=== PATIENT | male | born 1965 | race Caucasian/White ===

== ENCOUNTER 2017-03-24 20:58 | Inpatient (IN) | payer OTHER ==
[~2017-03-24] VITALS: Ht 170.2 cm; Wt 56.8 kg
[~2017-03-24 20:58] MED LIST: ANDROGEL5 GM TOP; ATORVASTATIN CA20 M1 PO; CAMBIA50 M1 PO; CEPHALEXIN500 M3 PO; FISH OIL 1,001000 MG PO; KEFLEX500 M1 PO; KETOROLAC TROME10 M1 PO; METHADONE HCL10 M1 PO; METHADONE HCL5 MG PO; MULTI-DAY VITA1 EACH PO; NAPROSYN500 M1 PO; OXYCODONE HCL15 M1 PO; ROBAXIN500 M1 PO; SUMATRIPTAN SU100 M1 PO
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
--- NOTE | 2017-03-24 21:38 | NUR ---
BLOOD DRAWN AND SENT TO LAB SST LAV BLUE
[2017-03-24 21:43] LABS: ABSOLUTE BASOPHIL COUNT 0.1 /CUMM (0.0-0.2); ABSOLUTE EOSINOPHIL COUNT 0.1 /CUMM (0.0-0.7); ABSOLUTE LYMPH COUNT 1.3 /CUMM (1.2-3.4); BASOPHIL % 0.9 % (0.0-2.0); EOSINOPHIL % 0.8 % (0-5); GRANULOCYTE % 71.4 % (42.2-75.2); HEMATOCRIT 40.7 % (42-52); MEAN CORPUSCULAR HGB 29.5 PG (27.0-31.0); MEAN CORPUSCULAR HGB CONC 33.1 G/DL (33.0-37.0); MEAN CORPUSCULAR VOLUME 89.1 FL (80.0-94.0); MEAN PLATELET VOLUME 9.1 FL (7.4-10.4); PLATELET COUNT 222 /CUMM (130-400); RBC DISTRIBUTION WIDTH 13.9 % (11.5-14.5); RED BLOOD CELL CT 4.57 /CUMM (4.70-6.10); WHITE BLOOD CELL COUNT 8.3 /CUMM (4.8-10.8)
--- NOTE | 2017-03-24 22:34 | NUR ---
PT REEVALUATED BY MD ZULEYKA AND MEDICATED WITH CATAPRES BY DARLING ZAPATA.
--- NOTE | 2017-03-24 23:30 | NUR ---
PT MEDICATED WITH 10MG HALDOL IM AND 2MG ATIVAN IM PER EMAR.
--- NOTE | 2017-03-24 23:46 | NUR ---
PT MEDICATED WITH 60MG TORADOL IM IN THE LEFT ARM. THIS RN STRAIGHT CATHED PT WITH 100ML OUTPUT. URINE TRIO SENT TO LAB
--- NOTE | 2017-03-25 01:28 | NUR ---
PT SLEEPING WITH RR, PT PLACED ON MONITOR IN RM. WILL CONTINUE TO MONITOR
--- NOTE | 2017-03-25 03:01 | NUR ---
PT SLEEPING WITH RR, BILATERAL CHEST RISE AND FALL NOTED. SITTER IN PLACE.
--- NOTE | 2017-03-25 06:06 | NUR ---
PT NOTED TO BE SLEEPING ON LEFT SIDE WITH RR, BILATERAL CHEST RISE AND FALL NOTED. PT ON MONITOR.
--- NOTE | 2017-03-25 06:45 | NUR ---
patient sleeping soundly at this time. even, nonlabored resp rate noted. will continue to monitor. lights remain dimmed to promote rest and comfort.
--- NOTE | 2017-03-25 08:00 | NUR ---
SITTER REMAINS WITH PATIENT AT THIS TIME FOR CONSTANT OBSERVATION AND PATIENT SAFETY.
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
--- NOTE | 2017-03-25 10:08 | NUR ---
MED WITH CATAPRES AT THIS TIME.
--- NOTE | 2017-03-25 11:54 | NUR ---
RESUMED CARE OF PT FROM PREVIOUS RN. PT MOVED TO RM 15. PT IS CALM AND COOPERATIVE WITH STAFF. NAD NOTED. AWAITING DISPO AND WILL CONTIUE TO MONITOR.
--- NOTE | 2017-03-25 13:40 | NUR ---
PT SLEEPING QUIETLY IN ROOM. AWAITING CRISIS EVAL AND DISPO. PT IN NAD. VSS. CONSTANT OBS MAINTAINED.
--- NOTE | 2017-03-25 15:12 | NUR ---
RELOCATED TO [facility] AT THIS TIME.
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
--- NOTE | 2017-03-25 15:53 | NUR ---
PT PROVIDED MEAL TRAY. PT CALM AND COOPERATIVE. DENIED HAVING ANY COMPLAINTS. SITTER PRESENT
--- NOTE | 2017-03-25 16:41 | NUR ---
PT MEDICATED WITH CLONIDINE O.1MG PO
--- NOTE | 2017-03-25 19:01 | NUR ---
Pt unable to be evlauted this shift, pt was medicated, and sound asleep, reviewed with oncall psychiatrist pt to be evaluated in the morning, when alert and oriented.
--- NOTE | 2017-03-25 19:10 | NUR ---
PT REQUESTING SOMETHING BECAUSE "ITS TOO LOUD" GIVEN EARPLUGS FOR COMFORT. PT BACK TO SLEEP AT THIS TIME W.RR NOTED. WILL CTM.
--- NOTE | 2017-03-25 22:42 | NUR ---
PT MEDICATED WITH CLONIDINE 0.1MG PO. PT REMAINED CALM AND COOPERATIVE. SITTER PRESENT
--- NOTE | 2017-03-26 00:04 | NUR ---
PT PROVIDED WITH JAZZMINE CRACKERS AND PEANUT BUTTER. DENIED HAVING ANY COMPLAINTS.
--- NOTE | 2017-03-26 02:29 | NUR ---
PT SLEEPING ON STRETCHER IN HALLWAY. RR WNL. NO APPARENT DISTRESS NOTED
--- NOTE | 2017-03-26 02:57 | NUR ---
PT MEDICATED WITH 2MG ATIVAN PER EMAR
--- NOTE | 2017-03-26 04:18 | NUR ---
PT ASLEEP AT THIS TIME W/RR NOTED, NAD.
--- NOTE | 2017-03-26 06:09 | NUR ---
PT REMAINS ASLEEP AT THIS TIME. PT IS SELF-REPOSITIONING. NAD. EQUAL CHEST RISE AND FALL NOTED. WILL CTM.
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
--- NOTE | 2017-03-26 09:08 | NUR ---
PT UP TO BATHROOM, STEADY BUT SLOW GAIT. PT ATE 100 % OF BREAKFAST
--- NOTE | 2017-03-26 09:19 | NUR ---
PT PROVIDED WITH EYE MASK DUE TO COMPLAINTS THAT HE IS TRYING TO SLEEP AND THE LIGHTS ARE TO BRIGHT
--- NOTE | 2017-03-26 10:43 | NUR ---
PT MEDICATED PER ORDER WITH CLONIDINE. PT REMAINS CALM AND COPERATIVE AT THIS TIME AND ANSWERS ALL QUESTIONS FROM THIS NURSE APPROPRIATLY
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
--- NOTE | 2017-03-26 12:05 | NUR ---
PT NOTED TO BE SLEEPING AT THIS TIME, REGULAR RESP RATE NOTED .
--- NOTE | 2017-03-26 14:07 | NUR ---
PT CONTINUES TO SLEEP ON STRETCHER WITH EYE SHIELD ON , REGULAR RESP RATE NOTED AT THIS TIME.
--- NOTE | 2017-03-26 16:51 | NUR ---
PATIENT HAS BEEN RESTING W/O C/O SINCE THIS NURSE TOO OVER CARE. VSS NAD APPROPRIATE BEHAVIOR AT THIS TIME
--- NOTE | 2017-03-26 17:34 | NUR ---
PATIENT IS REQUESTING PAIN MEDICATION FOR BACK PAIN.
--- NOTE | 2017-03-26 18:00 | NUR ---
PATIENT IS UP IN THE BR AND SHAVING. THIS NURSE IS WATCHING PATIENT VERY CLOSE. PATIENT IS DENYING SI AT THIS TIME.
--- NOTE | 2017-03-26 18:48 | NUR ---
PATIENT IS CURRENTLY IN CONSULTATION ROOM W/ CRISIS [place]ON APPRENTICE
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
[2017-03-26 22:56] VITALS: BP 145/89
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
[2017-03-27 08:52] VITALS: BP 155/94
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
[2017-03-27 12:35] VITALS: BP 125/75
--- NOTE | 2017-03-27 14:19 | NUR ---
PT IS CONSTANTLY APPROACHING NURSES STATION REQUESTING ITEMS SUCH SOCKS, EXTRA COFFEE, EXTRA BLANKETS, ETC. PT IS POLITE AND REDIRECTABLE BUT DEMANDS A LOT OF ATTENTION FROM STAFF. PT HAS BEEN OUT IN THE COMMUNITY INTERACTING WITH PEERS/STAFF ALL DAY SHIFT. PT HAS BEEN ATTENDING GROUPS AND PARTICIPATING. VS ARE STABLE AND DENIES ANY SI/HI TO THIS MHW. STATES THAT HE WANTS TO CLARIFY HIS MEDICATIONS.
[2017-03-27 16:09] VITALS: BP 144/82
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
[2017-03-27 20:19] VITALS: BP 126/75
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
--- NOTE | 2017-03-27 22:36 | NUR ---
PT VISIBLE MOST OF THE EVENING IN THE [place]. HE HAD A VISIT FROM TWO OF HIS FRIENDS THIS EVENING, THEY STAYED FOR A SHORT WHILE DROPPING OFF ITEMS TO PT. PT HAS SOME INTERACTIONS WITH PEERS, AND IS COMPLIANT WITH THE RULES OF THE UNIT. HE DENIES THOUGHTS TO HURT HIMSELF WHEN ASKED.
--- NOTE | 2017-03-28 05:31 | NUR ---
PT AWAKE AT 0500 C/O OF DISCOMFORT NEUROTIN GIVEN.
[2017-03-28 07:40] VITALS: BP 117/86
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
[2017-03-28 12:28] VITALS: BP 136/76
[2017-03-28 16:06] VITALS: BP 137/92
--- NOTE | 2017-03-28 17:08 | SOCIAL WORKER PROG NOTE PSYCH ---
Social Work Progress Note Progress Note 03/28/2017 5:00 pm Met with patient briefly to discuss referrals to multiple rehab centers as it is often difficult to obtain a rehab bed. patient agreed signed multiple releases of information. Referrals made to [facility], [facility], [facility]. Wojciech Petersn contacted to obtain fax number no fax number obtained. Social work to continue to follow.
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
[2017-03-28 20:01] VITALS: BP 135/87
--- NOTE | 2017-03-28 21:44 | NUR ---
PT IS VISIBLE ON UNIT, VISITING WITH SISTER IN KITCHEN. VERY SOCIAL WITH PEERS. COOPERATIVE AND COMPLIANT WITH STAFF. ATTENDED WRAP UP MEETING. NO COMPLAINTS OR SI REPORTED. PT HAS A STABLE MOOD AND FULL RANGE AFFECT.
[2017-03-29 07:48] VITALS: BP 136/65
--- NOTE | 2017-03-29 11:02 | NUR ---
PPT IS STABLE WITH BRIGHT, FULL RANGE OF AFFECT. PT HAS BEEN ATTENDING GROUPS THIS AM AND IS VISIBLE WITHIN THE [place] INTERACTING APPROPRIATELY WITH PEERS/STAFF. PT STATED HIS GOAL TODAY WAS TO "WORK ON GETTING INTO REHAB IN [place] AND MAKE IT A PERMANENT MOVE". PT IS PLEASANT, POLITE, COOPERATIVE AND COMPLIANT. VS ARE STABLE AND DENIES ANY SI/HI TO THIS MHW.
[2017-03-29 12:14] VITALS: BP 141/93
[2017-03-29 16:33] VITALS: BP 139/73
--- NOTE | 2017-03-29 16:35 | SOCIAL WORKER PROG NOTE PSYCH ---
Social Work Progress Note Progress Note Patient intially approached me today stating that he was interested in speaking with the psychiatrist about discharge due to being in physical pain and wanting to see his pain management doctor. Raj Iniguez (PA student) and this science writer met with patient at 3:40pm at which time the patient stated that he was feeling "great" and no longer in pain as he was utilizing a newly learned tapping technique from a group this afternoon and his pain has since diminished. He stated that he is therefore not interested in discharging at this time. Patient reported that he had slept well the night before and was engaged in the [facility]. He discussed medication questions and concerns with Dr. Smith. Discharge plans were explored to include a rehab in [place] and several in [place] as well as housing options and IOP until he enters a rehab. Patient appeared motivated to following through with a discharge plan to include an appointment with pain management on 04/03/17.
--- NOTE | 2017-03-29 16:50 | SOCIAL WORKER PROG NOTE PSYCH ---
Social Work Progress Note Progress Note This writer editor received vm from Nasima at [facility] in response the the referral. This writer editor returned the call and was informed that she is not in the office and will try to reach her tomorrow.
[2017-03-29 20:08] VITALS: BP 116/86
--- NOTE | 2017-03-29 22:17 | NUR ---
PT IS VISIBLE ON UNIT, SOCIALIZING WITH PEERS AND WATCHING TV. PT ATTENDED WRAP UP MEETING AND AA THIS EVENING. COOPERATIVE AND COMPLIANT WITH STAFF. NO COMPLAINTS OR SI REPORTED. PT HAS A STABLE MOOD AND FULL RANGE AFFECT.
--- NOTE | 2017-03-30 07:29 | NUR ---
PT SLEPT IN LONG INTERVALS. PT HAD NEURONTIN 600 PRN AT 0210. PT WOULD LIKE HYDROCORTISONE CREAM FOR A SKIN PROBLEM.
[2017-03-30 07:50] VITALS: BP 131/93
--- NOTE | 2017-03-30 10:37 | SOCIAL WORKER PROG NOTE PSYCH ---
Social Work Progress Note Progress Note Phoned [facility]#[phone], spoke with [place] - she stated they do not accept Adam's insurance Sean [employer] (actually it is not active - his insurance - will have Adam call Sean to apply [phone]). They will only accept commercial private insurance. It is $28,000 for the first month and the second month is "free." I infomed Karis Landry LCSW.
--- NOTE | 2017-03-30 11:52 | NUR ---
PT HAD SOME VISIBILITY IN THE [place] TODAY. HIS GOAL WAS TO KEEP WORKING ON DISCHARGE PLANS. PT DID NOT ATTEND FOCUS GROUP, OR THE 11:30 A GROUP. PT INSTEAD STAYED IN HIS ROOM AND RESTED. PT HAS BEEN INTERACTING WITH PEERS WHEN HE IS AWAKE, AND COMPLIANT WITH THE RULES OF THE UNIT. HE DENIES THOUGHTS TO HURT HIMSELF WHEN ASKED.
[2017-03-30 12:12] VITALS: BP 147/80
[2017-03-30 16:20] VITALS: BP 144/86
--- NOTE | 2017-03-30 17:34 | CP SOUTH PROGRESS NOTE PSYCH ---
Psych (Inpt) Progress Note Progress Note Include the following elements, when applicable: Involvement in the active treatment of the patient with behavioral observations of the patient and the patient's response to the treatment. Review of the ongoing treatment process in the context of the treatment plan. Indication of how multi-disciplinary staff members are carrying out the treatment plan. Plans for future interventions and recommendations for revision of the treatment plan. Liaison with other physicians/providers. Progress Note: PSYCHIATRIST NOTE (for 03/29/2017): I discussed this patient's progress to date, current mental status, treatment and discharge planning with staff team on the above date in the daily morning ITTChristiano and Charlotte Landry LCSW, our P.A. student Raj and I met with this patient together once again in individual session. He noted decreased and now manageable pain level after learning a technique called "tapping," and was willing to continue methadone taper in hospital which has begun and will be completed on 04/02/2017 with planned appointment with his pain management physician, Dr. Tata Anne, early next week; the date of that appointment must be clarified and modified if necessary, as it appears to be scheduled in early AM which is Sunday. Though patient's mood has been somewhat volitile/ labile at times there has been no clear impression to date of his being hypomanic or clinically depressed; his anxiety level and pressure have been diminishing, though he is still apt to speak at length about subjects such as ancient translations of biblical texts and their discrepancies, inacturacies and inadequacies, if given the chance.
--- NOTE | 2017-03-30 17:35 | CP SOUTH PROGRESS NOTE PSYCH ---
Psych (Inpt) Progress Note Progress Note Include the following elements, when applicable: Involvement in the active treatment of the patient with behavioral observations of the patient and the patient's response to the treatment. Review of the ongoing treatment process in the context of the treatment plan. Indication of how multi-disciplinary staff members are carrying out the treatment plan. Plans for future interventions and recommendations for revision of the treatment plan. Liaison with other physicians/providers. Progress Note: PSYCHIATRIST NOTE, 03/30/2017: I discussed this patient's progress to date, current mental status, treatment and discharge planning with staff team today in the daily morning ITTM and also met with him again myself in individual session. Patient noted continuing generalized pain not completely covered by the methadone as we taper down dose of the latter (from 40mg daily to 10mg 3x/day today) but is managing; he did accept another increase in regular dose of Neurontin to 900mg 4x/day which gives him the usual daily maximum of that medication, as well as doubling of clonidine dose at HS to 0.2mg to better help with sleep induction/ maintenance. Patient is currently wide awake, clear and quite coherent and goal -directed in expressed thinking, cooperative with unit programming and fitting increasingly well into the milieu. He endorsed the plan for continuing reduction in daily dose of methadone over the coming weekend with last 5mg dose to be given a noontime on 04/02/2017. There is still no clear evidence of endogenous depression or disorder of thought. Patient is more positive, engaging and future-oriented, denies suicidality in hospital, is feeling hopeful. We discovered that patient's currently scheduled appointment with his pain management physician, Dr. Baljeet Anne, is on 04/02/2017, in the earth science professor; he will be calling the doctor's office in order to try to move the visit to Sunday afternoon or as soon thereafter as possible.
--- NOTE | 2017-03-30 17:48 | SOCIAL WORKER PROG NOTE PSYCH ---
See Addendum Social Work Progress Note Progress Note This teletypewriter operator met with patient. He reported "terrible" sleep last night for multiple reasons such as noise and checks. He also reported experiencing pain ( "I'm tolerating it."), however, finding the tapping technique he learned in group yesterday as well as "my spiritual life" as helpful. Discharge plans were discussed. Patient is no longer interested in the [place] rehab due to the cost , however, he stated that he would call this weekend to inquire about possible scholarship options. Patient discussed looking forward to discharge on Sunday and meeting with his acid painter. This teletypewriter operator has also contacted [facility] in [place] and spoke with Karis ([phone]) who instructed to call on Sunday for a screening.
[2017-03-30 20:16] VITALS: BP 145/80
--- NOTE | 2017-03-30 20:23 | NUR ---
PT HAS BEEN PLEASANT WHILE ON THE UNIT, SOCIALIZING WITH STAFF AND PEERS. HE HAS BEEN COMPLIANT AND COOPERATIVE. PT GIVES GOOD FEEDBACK TO PEERS WHILE IN GROUPS. PTS AFFECT CAN APPEAR BRIGHT AND SLIGHTYLY GRANDIOSE AT TIME. HE ENJOYS HELPING STAFF AND PEERS BUT CAN SOMETIMES GET CLOSE WITH BOUNDARIES. PT DENIES ANY THOUGHTS OF SI WHEN ASKED BY STAFF.
--- NOTE | 2017-03-31 05:32 | NUR ---
PT SLEPT IN LONG INTERVALS. PT TAPERING OFF OF METHADONE FOR PAIN.
[2017-03-31 08:08] VITALS: BP 142/93
[2017-03-31 12:04] VITALS: BP 125/75
--- NOTE | 2017-03-31 13:39 | CP SOUTH PROGRESS NOTE PSYCH ---
Psych (Inpt) Progress Note Progress Note Include the following elements, when applicable: Involvement in the active treatment of the patient with behavioral observations of the patient and the patient's response to the treatment. Review of the ongoing treatment process in the context of the treatment plan. Indication of how multi-disciplinary staff members are carrying out the treatment plan. Plans for future interventions and recommendations for revision of the treatment plan. Liaison with other physicians/providers. Progress Note: He states that he feels so exuberant that he is here and that he is getting better. He learned a coping skill (tapping on various parts of his face and arms ) in order to manage his pain. He stated that he has been sleeping and eating well, and that he looks forward to ongoing improvements in his mood. He was effusive, elated and pleasant. MSE: middle aged man, mild psychomotor activation, happy, elated and expansive affect. No tics or tremors noted. His grooming is good. His affect is full to expansive, mood is elevated. His speech is normal. His thinking is logical and goal oriented. He denies suicidal thoughts. He denies voices. There is no evidence of delusional thinking. His insight and judgment are fair. Plan: continue current plan of care. Staff have been educating him regarding his multiple somatic complaints however he did not make any to me, and appears to be doing well; improving slowly.
--- NOTE | 2017-03-31 14:35 | NUR ---
PT IS COMPLIANT AND COOPERATIVE. MOOD IS STABLE WITH A FULL RANGE OF AFFECT. PT DENIES SI AT THIS TIME, C/O CHRONIC PAIN. PT IS PRESENT ON THE UNIT AND INTERACTING WELL WITH PEERS AND STAFF. PT VOICE TENDS TO BE LOUD AT TIMES- PT LOUDLY SINGING AT INTERVALS THROUGHOUT THE DAY. PT ATTENDED GROUP. VITALS ARE STABLE, APPETITE IS GOOD.
[2017-03-31 15:39] VITALS: BP 127/73
--- NOTE | 2017-03-31 20:06 | NUR ---
PT IS VISIBLE ON UNIT, VERY SOCIAL WITH PEERS AND WATCHING TV IN KITCHEN. COOPERATIVE AND COMPLIANT WITH STAFF. NO COMPLAINTS OR SI REPORTED. PT HAS A STABLE MOOD AND BRIGHT AFFECT.
[2017-03-31 20:08] VITALS: BP 144/96
--- NOTE | 2017-04-01 06:48 | NUR ---
PATIENT BRIEFLY AWAKE X2, OTHERWISE SLEPT ALL NIGHT.
[2017-04-01 07:40] VITALS: BP 141/77
--- NOTE | 2017-04-01 11:24 | NUR ---
STAFF HEARD SCREAMING FROM THE KITCHEN AND WHEN LIMITS WERE SET ON PT SCREAMING HE STATED "ITS BETTER THAN PUNCHING THE TV" PT DID NOT IDENTIFY WHAT HE WAS UPSET ABOUT SO SECURITY WAS CALLED TO SPEAK WITH PT ABOUT APPROPRIATE BEHAVIOR
--- NOTE | 2017-04-01 13:20 | CP SOUTH PROGRESS NOTE PSYCH ---
Psych (Inpt) Progress Note Progress Note Include the following elements, when applicable: Involvement in the active treatment of the patient with behavioral observations of the patient and the patient's response to the treatment. Review of the ongoing treatment process in the context of the treatment plan. Indication of how multi-disciplinary staff members are carrying out the treatment plan. Plans for future interventions and recommendations for revision of the treatment plan. Liaison with other physicians/providers. Progress Note: Stated that he is in so much pain that he screamed in the day room and required security to speak to him. He stated that he is not feeling well, that he cannot tolerate the pain and his finger tapping is no longer working. We discussed managing his pain with the tapping, with distraction and his regular medications , and plan to follow up with pain medicine during the week. He was aware of his behavior and irritability with staff and apologized for it. MSE: middle aged man, mild psychomotor activation, irritable initially then pleasant and well related. He has no tics or tremors. His affect is expansive and his mood is neutral. His thinking is goal oriented, at times becoming tangential, but overall normal. His speech is regular rate and rhythm. There is no evidence of delusional thinking, hallucinations or thoughts to harm self/ others. His insight and judgment are fair. Plan: continue current plan of care. Encouraged him to follow up with pain medicine during the week; to avoid confrontation with staff when frustrated ( exclaimed that he will no longer take meds from some of the nursing staff, educated him regarding conflict resolution with staff rather than making ultimatums; listened to concerns and provided feedback/reassurance.
[2017-04-01 15:54] VITALS: BP 139/77
[2017-04-01 20:13] VITALS: BP 153/99
--- NOTE | 2017-04-01 20:27 | NUR ---
PT HAS BEEN MORE QUIET AND WITHDRAWN THIS SHIFT THAN PAST OBSERVATIONS, STILL EXHIBITING A FULL RANGE OF AFFECT. PT IS SOCIAL WITH STAFF AND PEERS, BUT HAS SPENT MORE TIME ALONE EITHER WATCHING TV OR READING IN HIS ROOM. STAFF HAD TO TELL HIM 3X TO KEEP HIS DOOR OPEN. PT SOMETIMES QUESTIONS THE RULES AND CAN BE A LITTLE INTRUSIVE WITH REQUESTS. PT HAS DENIED ANY THOUGHTS OF SI WHEN ASKED BY STAFF.
--- NOTE | 2017-04-02 06:38 | NUR ---
PT SLEPT. PT TAPERING OFF OF METHADONE. PT WAS SPOKEN TO BY SECURITY YESTERDAY MORNING AFTER HE BECAME UPSET AND BEGAN TO HOLLER. HE WAS VISITED BY MEMBERS OF A [facility]ORMON GROUP ON EVENINGS. SOON AFTER, THE PATIENT TOLD ME HE WAS GOING TO REFUSE MEDS. SOON AFTER THAT, THE PATIENT STATED HE WAS GOING TO TAKE MEDS. PT APPEARS SLIGHTLY ELEVATED AND LABILE. PT WITH A POSSIBLE DC TODAY.
[2017-04-02 07:53] VITALS: BP 142/88
[2017-04-02] MEDS ORDERED: NEURONTIN800 M2 PO (10:26)
[2017-04-02] MEDS ORDERED: REMERON15 M2 PO (10:26)
--- NOTE | 2017-04-02 11:32 | NUR ---
Patient is A&O X 3, compliant with medication and group therapies.Patgient is being discharged today with Diagnosis of Unspecified Depressive Disorder, Polysubstance Abuse with Suicidal Ideation. Patient has appointment with his pain Doctor at 2:00 Pm and has acknowledges the receipt of his discharge, Aftercare and Follow-up program. Patient also acknowledges the receipt of the emergency phone number and to use it when feeling overwhelmed or out of control.Mood and affects are irritable/angry but denies thought of self-harm and to someone else.
[2017-04-02 12:22] VITALS: BP 119/64
--- NOTE | 2017-04-02 12:37 | SOCIAL WORKER PROG NOTE PSYCH ---
Social Work Progress Note Progress Note This chart writer met with patient. He completed a phone screening with the [facility] in [place] for their inpatient program, however, was informed that the wait list is 4-6 weeks. Patient kept the phone number and agreed to call the [facility] and also provided his sister's name and number as a floor coverings salesperson should a bed become available. Attempts to follow up with other rehab programs were made but unsuccessful ([facility], [place], [facility]). This chart writer followed up with [place], where a referral was sent this morning and was informed, by Anjana, that it would take "a couple days to review it." Aisha at [facility] stated that they do not have any bed availability for 2 1/2 weeks. Regarding housing, initially patient stated that he is not interested in a fdc or 211, however, he was observed calling 211 from the patient phone. Patient accepted an intake assessment with [facility] for 04/03/17 at 12:45pm. He denied SI/HI/AH/VH and appeared motivated to follow through with [facility] as well as his paint supervisor, Dr. Anne, this afternoon. Just prior to leaving, the patient informed this chart writer that he has identified a place where he can stay through a friend: [address] [place] [address]. Patient was provided with cab fare to his appointment with Dr. Anne. W10 and Patient Health Summaries were faxed to [facility] (fax confirmation receipt showed 1:48pm today) and Dr. Anne (fax confirmation receipt showed 2:04pm, today). Documents and confirmation receipts were filed in the patient's chart.
--- NOTE | 2017-04-02 14:01 | NUR ---
DISCHARGED AT 1400.
--- NOTE | 2017-04-02 17:58 | CP SOUTH PROGRESS NOTE PSYCH ---
Psych (Inpt) Progress Note Progress Note Include the following elements, when applicable: Involvement in the active treatment of the patient with behavioral observations of the patient and the patient's response to the treatment. Review of the ongoing treatment process in the context of the treatment plan. Indication of how multi-disciplinary staff members are carrying out the treatment plan. Plans for future interventions and recommendations for revision of the treatment plan. Liaison with other physicians/providers. Progress Note: PSYCHIATRIST NOTE (DISCHARGE): I discussed this patient's progress to date, current mental status, treatment and discharge plans with staff team today in the daily morning ITTM and met with him again in individual session prior to discharging him to intake at the [facility] for tomorrow, 04/03/2017 at 12:45pm. Several residential programs were explored by patient and Ms. Landry and he has a list of venues and waiting lists (for further details, see Ms. Landry's progress note of this date). He took a cab this afternoon directly to the office of his pain management physician, Baljeet Anne M.D., of [facility], for his 2:30pm appointment with him. Patient will be staying, at least temporarily, in [place] which will make it easier for him to attend [facility]; patient understands that he will not be able to continue in our program if his urine screening shows evidence of illicit substances. Patient is currently in quite good spirits despite persisting complaints re pain; he received last tapering dose of methadone today, completing detox at noontime with 5mg of methadone; he has found the high dose Neurontin to be of some help in dulling his discomfort and wished to remain on this medication. Patient is euthymic, future-oriented, showing no evidence of suicidal or homicidal ideation, plans, intent or impulses and is well aware of his own safety plan should he ever in future come to believe himself at acute risk of self-harm or harming others. (for details of all medications at the time of discharge, dosages, scheduling, amounts prescribed, indications, see the "Discharge Medications" section of the discharge summary from this admission in the electronic medical record)
--- NOTE | 2017-04-02 17:59 | DISCHARGE SUMMARY REPORT-PSYCH ---
Visit Information Visit Dates/Diagnosis' Admission Date: 03/26/17 Discharge Date: 04/02/17 Psy Discharge Primary Diapioid Use Disorder, severe Opioid Intoxication ( with heroin) in [facility] Cocaine Use Disorder, severe Cocaine Intoxication in [facility] R/O Dysthymia R/O Unspecified Mood Disorder (irritability, some mood lability) Psy Discharge Secondary Diag: hx of chronic back pain Hospital Course Course Allergies: Coded Allergies: No Known Allergies (03/21/17) Discharge HBIPS - Tobacco Use Treatment Offered - EtOH/Drug Use D/O Treatment Offered Metabolic Screening - Screen if on a Neuroleptic Medication - Metabolic screening should include: - Blood Pressure, BMI, Glucose or Hgb A1c, & a - Lipid profile from within the past 365 days. Discharge Instructions General Discharge Information Discharge Medications: I called into [facility], [address], [place], [place] on day of discharge, : Remeron, 15mg: i tab nightly at HS (15mg/night); #14 with no refill (sleep induction/reduce evening anxiety) Neurontin, 800mg: i tab 3x/day (2,400mg daily); #42 with no refill (to reduce intensity of discomfort/pain)
== END 2017-04-02 14:00 | DRG 773 ==
LOC: ERH 20:58 → ERHI 03-26 20:31 → CP SOUTH 03-26 20:31 → ENTRNSPT 03-26 21:42 → CMPTRNSPT 03-26 21:45 → CP SOUTH 03-26 22:04 → CMPBEDREQ 03-27 10:02 → CP SOUTH 03-27 10:10
PROVIDERS: Pediatrics; ADMIT Psychiatry & Neurology Addiction Medicine
DX: F11.229 Opioid dependence with intoxication, unspecified (principal); F14.229 Cocaine dependence with intoxication, unspecified; F34.1 Dysthymic disorder; F39 Unspecified mood [affective] disorder; G89.29 Other chronic pain; M54.9 Dorsalgia, unspecified
CPT/HCPCS: 86618; 36415; 80307; 93005; 93010; 96372; G0463; G0480; J1630; J1885